=== PATIENT | female | born 2000 | race Two or more races ===

== ENCOUNTER 2024-05-31 19:59 | Emergency (ER) | payer MEDICAID, SELFPAY ==
[2024-05-31 20:00] VITALS: BMI 30.1
[2024-05-31 21:23] VITALS: BP 149/98; PULSE 95; RESP 18; TEMP 37.2; O2SAT 100
--- NOTE | 2024-05-31 21:45 | XR_ITS ---
Examination: CTA carotids with intravenous contrast CTA brain, head with intravenous contrast. 2-D sagittal, coronal reconstructions. 3-D reconstructions. Exam date and time: June 01, 2024 at 0257 hours INDICATIONS: Neck pain after chiropractic manipulation today CTDI: vol (mGy) 10.8 DLP: (mGycm) 412 Technique: Multiple CTA axial brain, head carotid images post intravenous contrast injection 75 cc, [id number]. 2-D sagittal, coronal reconstructions. 3-D reconstructions, 3-D post processing including vascular maximum intensity projection images. Low dose protocols were performed. One or more of the following dose reduction techniques were used; automated exposure control, adjustment of the mA and/or KV according to patient size, use of iterative reconstruction technique. Findings: Common carotid arteries carotid bifurcations internal carotid arteries intact Dominant left vertebral artery with no critical stenoses No cerebral large vessel arterial occlusions thrombus or dissection IMPRESSION: No significant neck arterial stenoses or dissection No cerebral large vessel arterial occlusion thrombus or dissection If symptoms persist, recommend brain MRI MRA follow-up pre and postcontrast
--- NOTE | 2024-05-31 21:45 | XR_ITS ---
Examination: CT cervical spine without contrast 2-D sagittal reconstructions 2-D coronal reconstructions 3-D reconstructions. Exam date and time:June 01, 2024, 0252 hours INDICATIONS: Neck pain after chiropractic manipulation today to the neck CTDI:vol (mGy) 13.9 DLP: (mGycm) 322 Technique: Multiple 2 mm axial sections of the cervical spine have been obtained. The coronal and sagittal reconstructions have been obtained. 3-D reconstructions have been obtained. Low dose protocols were performed. One or more of the following dose reduction techniques were used; automated exposure control, adjustment of the mA and/or KV according to patient size, use of iterative reconstruction technique. Findings: Axial sections demonstrate intact base of the skull. C1 exhibit satisfactory relationship to the odontoid. No acute cervical vertebral body fracture seen. Alignment posterior spinous processes satisfactory. Impression: No acute cervical fracture. Straightening normal cervical lordosis If neck pain persists, consider MRI cervical spine without contrast follow-up
[2024-05-31] MEDS: HYDROcodone/APAP 5/325 TABLET 1 TAB PO (22:02)
[2024-05-31 22:22] LABS: Basophils % (Auto) 1 % (0-2.5); Eosinophils # (Auto) 0.1 Thou/mm3 (0.0-0.5); Eosinophils % (Auto) 1 % (0-10); Hematocrit 34.9 % (36.0-46.0); Hemoglobin 11.7 g/dL (12.0-16.0); Immature Granulocytes % (Auto) 0 % (0-0); Immature Granulocytes Auto 0.01 Thou/mm3 (0.00-0.00); Lymphocytes # (Auto) 1.8 Thou/mm3 (1.0-4.8); Lymphocytes % (Auto) 20 % (10-50); Mean Corpuscular HGB Conc 33.5 g/dl (31.0-37.0); Mean Corpuscular Hemoglobin 26.2 pg (25.0-35.0); Mean Corpuscular Volume 78 fL (80-100); Monocytes # (Auto) 0.5 Thou/mm3 (0.0-0.8); Monocytes % (Auto) 6 % (0-12); Neutrophils # (Auto) 6.4 Thou/mm3 (1.8-7.7); Neutrophils % (Auto) 72 % (37-80); Nucleated Red Blood Cell % 0 /100 WBC (0); Platelet Count 365 Thou/mm3 (140-440); RDW Standard Deviation 40.4 fL (36.4-46.3); Red Blood Count 4.47 Miln/mm3 (4.00-5.20); White Blood Count 8.9 Thou/mm3 (3.6-11.0)
[2024-05-31 22:53] LABS: Alanine Aminotransferase 8 U/L (10-49); Albumin, Serum 4.7 gm/dL (3.5-5.0); Albumin/Globulin Ratio 1.6 (1.2-2.2); Alkaline Phosphatase 63 U/L (46-116); Anion Gap 10 (7-16); Aspartate Amino Transferase 20 U/L (0-34); BUN/Creatinine Ratio 10 Ratio (12-20); Bilirubin,Total 0.3 mg/dL (0.3-1.2); Blood Urea Nitrogen 8 mg/dL (9-23); Calcium 9.3 mg/dL (8.3-10.6); Calcium (Corrected) 9.3 mg/dL (8.5-10.1); Carbon Dioxide 24.1 mMol/L (20.0-31.0); Chloride 105 mMol/L (98-107); Creatinine (Component) 0.8 mg/dL (0.6-1.3); Estimated Creatinine Clearance 105.7 mL/min (>60); Globulin 2.9 gm/dL (2.3-3.5); Glucose 99 mg/dL (74-106); Osmolality,Calculated 275 (275-295); Potassium 3.5 mMol/L (3.4-5.1); Sodium 139 mMol/L (136-145); Total Protein 7.6 gm/dL (5.7-8.2); eGFR > 60 See Note
[2024-06-01 02:29] LABS: HCG,Qualitative Serum Negative
--- NOTE | 2024-06-01 04:45 | PC.NURSE ---
PT STATED SHE WANTED TO LEAVE AMA, PT STATES SHE IS DOES NOT WANT TO WAIT ANY LONGER. PROVIDER DESI INFORMED AND SPOKE TO PT, ALL RISK AND BENEFITS UP TO AND INCLUDING REVIEWED WITH PT, PT ENCOURAGED TO RETURN TO ER IF SYMPTOMS WORSEN. PT A/OX3 AT TIME OF AMA.
--- NOTE | 2024-06-01 04:46 | PD.EDRME ---
Rapid Medical Screening Exam [facility] Arrival date/time: 05/31/24 19:59 23F with no significant PMH presents to ED with worsening headache and neck pain, as well as some dizziness after going to a chiropractor for cervical manipulation 3 days ago. Patient got CT to r/o vertebral dissection. Results were taking too long and patient didn't want to wait for them. Patient AMA'd. Chief Complaint: Neck Pain/Injury Time Seen by Provider: 05/31/24 21:45 Vital signs: Vital Signs Temperature 99.0 F 05/31/24 21:23 Pulse Rate 95 05/31/24 21:23 Respiratory Rate 18 05/31/24 21:23 Blood Pressure 149/98 H 05/31/24 21:23 Pulse Oximetry (%) 100 05/31/24 21:23
--- NOTE | 2024-06-01 05:47 | PRELIM_ITS ---
CT scan of the cervical spine without intravenous contrast (axial sections with sagittal and coronal reformats) June 01, 2024 at 0252 hours Clinical History: Pain after chiropractor. Comparison: Compared with the prior study dated June 01, 2024. Findings: There is no fracture or subluxation. The prevertebral soft tissues are unremarkable. Loss of the physiologic cervical lordosis. Impression: No evidence of fracture or subluxation. Loss of the physiologic cervical lordosis. Report Electronically Signed By: Nolan Arora 06/01/2024 5:46:14 AM [EST]
--- NOTE | 2024-06-01 06:02 | PRELIM_ITS ---
CT angiogram of the head and neck with intravenous contrast (axial sections with sagittal and coronal reformats) June 01, 2024 0257 hours Clinical History: r/o vertebral dissection Findings: Head: The internal carotid, middle and anterior cerebral arteries are patent bilaterally. The intracranial vertebral arteries are patent. The vertebrobasilar junction, basilar and posterior cerebral arteries are patent. No evidence of large vessel occlusion, critical stenosis or aneurysm. Neck: The aortic arch to the extent visualized as well as the origins of the right brachiocephalic, left common carotid, and left subclavian arteries are patent. The common carotid arteries, carotid bulbs, and internal and external carotid arteries are patent. The origins of the vertebral arteries are unremarkable. The vertebral arteries are codominant. No evidence of vascular occlusion, critical stenosis, dissection or aneurysm. The soft tissues of the neck are unremarkable. The osseous structures are unremarkable. Impression: Head: No evidence of large vessel occlusion, critical stenosis or aneurysm. Neck: No evidence of vascular occlusion, critical stenosis, dissection or aneurysm. Report Electronically Signed By: Floyd Gregory 06/01/2024 6:01:52 AM [EST]
== END 2024-06-01 05:39 | disposition left against medical advice (07) ==
LOC: SERX 23:47
PROVIDERS: Physician Assistant; Emergency Provider Emergency Medicine
DX: R51.9 Headache, unspecified (principal); R42 Dizziness and giddiness; M54.2 Cervicalgia; Z53.29 Procedure and treatment not carried out because of patient's decision for other reasons
CPT/HCPCS: 36415; 70496; 70498; 72125; 80053; 84703; 85025; 99281; A4649; Q9967; A9270